=== PATIENT | female | born 2000 | race Two or more races ===

== ENCOUNTER 2020-01-17 12:49 | Emergency (ER) | payer OTHER ==
[~2020-01-17] VITALS: Ht 154.9 cm; Wt 35.8 kg
--- NOTE | 2020-01-17 13:15 | NUR ---
PT STATES HAD A SEIZURE APPROX 20-30 MIN AGO, STATES FIRSTY SEIZURE IN 5 YEARS. PT IS A&OX4, PROTECTING OWN AIRWAY WELL. PT STATES H/A NOW. PT PLACED ON MONITORS, SEIZURE PRECAUSTIONS IN PLACE. IV STARTED, PT'S FIANCE AT BEDSIDE. AWAITING ERMD ASSESSMENT. WILL FOLLOW ORDERS.
--- NOTE | 2020-01-17 13:23 | NUR ---
ERMD AT BEDSIDE FOR ASSESSMENT.
[2020-01-17] MEDS ORDERED: LORazepam 2 MG/ML, 1ML IV ONE (13:30)
[2020-01-17] MEDS ORDERED: SODIUM CHLORIDE FLUSH 10ML SYR IVF ONE (13:30)
[2020-01-17] MEDS ORDERED: SODIUM CHLORIDE 0.9% 1,000ML IVBOLUS ONE (13:30)
--- NOTE | 2020-01-17 13:36 | NUR ---
PER ERMD, PT MAY RECEIVE ATIVAN DOSE IF PT CHOOSES. PT EDUCATED, CAN HAVE ATIVAN. PT CURRENTLY REFUSES ATIVAN. IVF STARTED. CONT TO MONITOR.
[2020-01-17 13:50] LABS: BASOPHILS # (AUTO) 0.03 x10^3/uL (0-0.3); BASOPHILS % (AUTO) 1 % (0-1); EOSINOPHILS # (AUTO) 0.15 x10^3/uL (0-0.8); EOSINOPHILS % (AUTO) 3 % (1-7); LYMPHOCYTES # (AUTO) 2.18 x10^3/uL (1-6.1); LYMPHOCYTES % (AUTO) 49 % (22-44); MD NO; MEAN CORPUSCULAR HEMOGLOBIN 30.1 pg (27.0-34.8); MEAN CORPUSCULAR HGB CONC 33.4 g/dL (32.4-35.8); MEAN PLATELET VOLUME 9.1 fL (7.4-10.4); MONOCYTES # (AUTO) 0.31 x10^3/uL (0-1.4); MONOCYTES % (AUTO) 7 % (2-9); NEUTROPHILS # (AUTO) 1.81 x10^3/uL (1.8-8.0); NEUTROPHILS % (AUTO) 41 % (42-75); PLATELET COUNT 352 x10^3/uL (130-400); RED BLOOD COUNT 5.14 x10^6/uL (3.82-5.3); RED CELL DISTRIBUTION WIDTH 12.9 % (9.6-15.2)
[2020-01-17 14:02] LABS: ALBUMIN 3.9 g/dL (3.4-5.0); ANION GAP 15 mmol/L (5-15); CALCIUM 9.3 mg/dL (8.5-10.1); CHLORIDE 107 mmol/L (98-107); CREATININE 0.91 mg/dL (0.55-1.02)
--- NOTE | 2020-01-17 14:04 | NUR ---
TASK RN NOTE: PT LAYING BACK IN BED, NAD NOTED AT THIS TIME. PT DENIES PAIN. SIDE RAILS UP WITH SZ PADS IN PLACE. BLANKET APPLIED. IVF INFUSING PER EMAR. FIANCE AT BEDSIDE.
[2020-01-17 14:51] VITALS: BP 106/67
== END 2020-01-17 14:53 | disposition home or self-care (01) ==
LOC: ED 14:45
DX: R56.9 Unspecified convulsions (principal); R55 Syncope and collapse
CPT/HCPCS: 36415; 80048; 82040; 84703; 85025; 96360; 99283; J7030